=== PATIENT | female | born 1980 | race Two or more races ===

== ENCOUNTER → 2016-06-29 | Outpatient (REF) | payer OTHER, MEDICAID | LOC: M SFHCLERA 11:18 | PROVIDERS: ATTEND Family Medicine | DX: Z12.4 Encounter for screening for malignant neoplasm of cervix (principal) ==

== ENCOUNTER 2016-07-03 17:08 | Emergency (ER) | payer OTHER, MEDICAID ==
--- NOTE | 2016-07-03 18:04 | REP ---
Clinical: Trauma . Technique: Internal rotation, external rotation, and Y view left shoulder. Findings: No acute fracture or dislocation. The acromioclavicular and glenohumeral joints are intact. No periarticular calcifications or degenerative changes are appreciated. Sub acromial space is normal. Surrounding soft tissues are unremarkable. Impression: No acute fracture or dislocation. Signed by Anuel Olson MD 07/03/2016 05:55 P
--- NOTE | 2016-07-03 18:06 | REP ---
Clinical: Trauma. Technique: AP view of the pelvis with neutral and frog lateral views of the left hip. Findings: No acute fracture or dislocation. Small calcified density adjacent to the superior acetabular rim and mild increased sclerosis to the acetabular roof suggests mild degenerative change. Impression: Mild degenerative changes involving the left hip. No acute fracture or dislocation. Signed by Anuel Olson MD 07/03/2016 05:56 P
--- NOTE | 2016-07-03 18:15 | EDDOCDS ---
Nurse's Notes [facility] Name: Santa Rausch Age: 36 yrs Sex: Female : 1980 Arrival Date: 07/03/2016 Time: 17:08 Bed 13 Private MD: [place]el [facility] [place]: Contusion of left hip;Contusion of left shoulder Presentation: 07/03 17:13 Presenting complaint: Patient states: fell while running x 2 days ago with pain to left kc3 hip and arm. Adult Sepsis Screening: The patient does not have new or worsening altered mentation. Patient's respiratory rate is less than 22. Systolic blood pressure is greater than 100. Patient has a qSOFA score of 0- Negative Sepsis Screen. Suicide/Homicide risk assessment- the patient denies having any suicidal and/or homicidal ideations and does not present with any other emotional, behavioral or mental health complaints. Status: Patient is not a director of environmental services or dependent. Transition of care: patient was not received from another setting of care. 17:13 Acuity: MATEO Level 4 kc3 17:13 Method Of Arrival: Walkin/Carried/Asstd kc3 Triage Assessment: 17:15 General: Appears in no apparent distress, comfortable, Behavior is appropriate for age, kc3 cooperative. Pain: Location: left hip and left arm Pain currently is 7 out of 10 on a pain scale. HIV screening NA for this visit Offered previously. Musculoskeletal: Circulation, motion, and sensation intact Reports pain in left arm and hip. 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 none - PMHx: Kidney stones; - PSHx: none; - Social history: Smoking status: Patient states was never smoker of tobacco. No barriers to communication noted, The patient speaks fluent French, Speaks appropriately for age. - Family history: Not pertinent. - : The pt / caregiver states he / she is not on anticoagulants. Home medication list is obtained from the patient. - Exposure Risk Screening:: None identified. Screenin:12 Screening information is obtained from the patient. Fall risk: No risks identified. hs1 Assistance ADL's: requires no assistance with activities of daily living. Abuse/DV Screen: The patient / caregiver reports he/she is: not in a situation that causes fear, pain or injury. Nutritional screening: No deficits noted. Advance Directives: There is no active DNR order. home support is adequate. Assessment: 18:12 General: Appears in no apparent distress, comfortable, Behavior is appropriate for age, hs1 cooperative. Pain: Location: left hip, anterior aspect of left shoulder and posterior aspect of left shoulder Pain currently is 7 out of 10 on a pain scale. Quality of pain is described as aching, dull. Neurological: No deficits noted. Respiratory: Airway is patent Respiratory effort is even, unlabored, Respiratory pattern is regular, symmetrical. Musculoskeletal: Range of motion intact in all extremities. Vital Signs: 17:09 BP 149 / 76; Pulse 72; Resp 18; Temp 97.7(O); Pulse Ox 100% on R/A; Weight 66.68 kg lr2 (R); Height 5 ft. 2 in. (157.48 cm) (R); Pain 7/10; 18:13 BP 124 / 76; Pulse 79; Resp 18; Temp 97.8; Pulse Ox 98% ; Pain 7/10; hs1 17:09 Body Mass Index 26.89 (66.68 kg, 157.48 cm) lr2 Vitals: 17:09 Log In Time: July 03, 2016 at 17:08. lr2 ED Course: 17:09 Patient visited by Alix Sharma. lr2 17:09 Patient moved to Waiting lr2 17:10 Shanel [facility] [place] Private Physician. lr2 17:10 Patient moved to Pre RCE lr2 17:14 Triage Initiated kc3 17:23 Iam Seymour FNP is [facility]. ke 17:23 Patient visited by Iam Seymour FNP. ke 17:23 Patient visited by Iam Seymour FNP. ke 17:23 Patient moved to 13 mlb1 18:03 Patient visited by Iam Seymour FNP. ke 18:03 DIANA Ugarte is Referral Physician. ke 18:12 No IV's were initiated during this patient's visit. No procedures done that require hs1 assistance. 18:13 The patient / caregiver is instructed regarding the plan of care and ED course. hs1 Order Results: There are currently no results for this order. Outcome: 18:04 Discharge ordered by Provider. ke 18:13 Discharge Assessment: Patient awake, alert and oriented x 3. No cognitive and/or hs1 functional deficits noted. Patient verbalized understanding of disposition instructions. patient administered narcotics - no. The following High Risk Discharge criteria are identified: None. Discharged to home ambulatory. Condition: stable. Discharge instructions given to patient, Instructed on discharge instructions, follow up and referral plans. medication usage, Demonstrated understanding of instructions, medications, Pt was receptive of discharge instructions/ teaching. No special radiology studies were completed. Property sent home with patient. 18:14 Patient left the ED. hs1 Signatures: Iam Seymour, PRECISION DYER Bg Hernández RN RN mlb1 Sabiha Morton RN RN hs1 Ernestina Frances RN RN kc3 Alix Sharma2 MTDD
--- NOTE | 2016-07-03 18:15 | EDDOCDS ---
Physician Documentation [facility] Name: Santa Rausch Age: 36 yrs Sex: Female : 1980 Arrival Date: 07/03/2016 Time: 17:08 Bed 13 Private MD: ADRIANO Ugarte Disposition: 07/03/16 18:04 Discharged to Home/Self Care. Impression: Contusion of left hip, Contusion of left shoulder. - Condition is Stable. - Discharge Instructions: Shoulder Pain, Hip Pain. - Prescriptions for Ibuprofen 600 mg Oral Tablet - take 1 tablet by ORAL route every 6 hours As needed take with food; 30 tablet. Cyclobenzaprine 10 mg Oral Tablet - take 1 tablet by ORAL route 3 times per day As needed; 15 tablet. - Medication Reconciliation, Local Pharmacy Hours form. - Follow up: ADRIANO Ugarte; When: 4 - 5 days; Reason: Recheck today's complaints, Continuance of care. - Problem is an ongoing problem. - Symptoms are unchanged. Historical: - Allergies: no known allergies; - Home Meds: 1. none - PMHx: Kidney stones; - PSHx: none; - Social history: Smoking status: Patient states was never smoker of tobacco. No barriers to communication noted, The patient speaks fluent Chilean, Speaks appropriately for age. - Family history: Not pertinent. - : The pt / caregiver states he / she is not on anticoagulants. Home medication list is obtained from the patient. - Exposure Risk Screening:: None identified. 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 2 in. (157.48 cm) (R); Pain 7/10; 18:13 BP 124 / 76; Pulse 79; Resp 18; Temp 97.8; Pulse Ox 98% ; Pain 7/10; hs1 17:09 Body Mass Index 26.89 (66.68 kg, 157.48 cm) lr2 MDM: 17:29 Shoulder, Complete Ordered. EDMS 17:29 Hip,AP,LAT to include Pelvis Ordered. EDMS 18:07 Financial registration complete. [email or web address] Signatures: Dispatcher [employer] Iam Ramirez, TELEVISION INSTALLER HELPER TELEVISION INSTALLER HELPER Sabiha Ramirez RN RN hs1 Ernestina Frances RN RN kc3 Francie Coker, Reg Reg ks16 MTDD
--- NOTE | 2016-07-05 19:14 | EDDOCDS ---
Physician Documentation [facility] Name: Santa Rausch Age: 36 yrs Sex: Female : 1980 Arrival Date: 07/03/2016 Time: 17:08 Bed 13 Private MD: ADRIANO Ugarte Disposition: 07/03/16 18:04 Discharged to Home/Self Care. Impression: Contusion of left hip, Contusion of left shoulder. - Condition is Stable. - Discharge Instructions: Shoulder Pain, Hip Pain. - Prescriptions for Ibuprofen 600 mg Oral Tablet - take 1 tablet by ORAL route every 6 hours As needed take with food; 30 tablet. Cyclobenzaprine 10 mg Oral Tablet - take 1 tablet by ORAL route 3 times per day As needed; 15 tablet. - Medication Reconciliation, Local Pharmacy Hours form. - Follow up: ADRIANO Ugarte; When: 4 - 5 days; Reason: Recheck today's complaints, Continuance of care. - Problem is an ongoing problem. - Symptoms are unchanged. Historical: - Allergies: no known allergies; - Home Meds: 1. none - PMHx: Kidney stones; - PSHx: none; - Social history: Smoking status: Patient states was never smoker of tobacco. No barriers to communication noted, The patient speaks fluent Surinamese, Speaks appropriately for age. - Family history: Not pertinent. - : The pt / caregiver states he / she is not on anticoagulants. Home medication list is obtained from the patient. - Exposure Risk Screening:: None identified. 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 2 in. (157.48 cm) (R); Pain 7/10; 18:13 BP 124 / 76; Pulse 79; Resp 18; Temp 97.8; Pulse Ox 98% ; Pain 7/10; hs1 17:09 Body Mass Index 26.89 (66.68 kg, 157.48 cm) lr2 MDM: 17:29 Shoulder, Complete Ordered. EDMS 17:29 Hip,AP,LAT to include Pelvis Ordered. EDMS 18:07 Financial registration complete. ks16 19:12 [facility] Payment Agreement was scanned into [employer] and attached to record. 07/04 09:19 T-Sheet-- Draft Copy was scanned into [employer] and attached to record. [facility] Signatures: Dispatcher [employer] EDIam Green, RANGE MANAGEMENT SPECIALIST RANGE MANAGEMENT SPECIALISTSabiha Live RN RN hs1 Ernestina Frances RN RN kc3 Francie Coker, Reg Reg ks16 Dayana Romero [facility] The chart was reviewed and I authenticate all verbal orders and agree with the evaluation and treatment provided.Attachments: 07/03 19:12 [facility] Payment Agreement 07/04 09:19 T-Sheet-- Draft Copy [facility] Chart Complete MTDD
--- NOTE | 2016-07-05 19:14 | EDDOCDS ---
Physician Documentation [facility] Name: Santa Rausch Age: 36 yrs Sex: Female : 1980 Arrival Date: 07/03/2016 Time: 17:08 Bed 13 Private MD: ADRIANO Ugarte Disposition: 07/03/16 18:04 Discharged to Home/Self Care. Impression: Contusion of left hip, Contusion of left shoulder. - Condition is Stable. - Discharge Instructions: Shoulder Pain, Hip Pain. - Prescriptions for Ibuprofen 600 mg Oral Tablet - take 1 tablet by ORAL route every 6 hours As needed take with food; 30 tablet. Cyclobenzaprine 10 mg Oral Tablet - take 1 tablet by ORAL route 3 times per day As needed; 15 tablet. - Medication Reconciliation, Local Pharmacy Hours form. - Follow up: ADRIANO Ugarte; When: 4 - 5 days; Reason: Recheck today's complaints, Continuance of care. - Problem is an ongoing problem. - Symptoms are unchanged. Historical: - Allergies: no known allergies; - Home Meds: 1. none - PMHx: Kidney stones; - PSHx: none; - Social history: Smoking status: Patient states was never smoker of tobacco. No barriers to communication noted, The patient speaks fluent Slovenian, Speaks appropriately for age. - Family history: Not pertinent. - : The pt / caregiver states he / she is not on anticoagulants. Home medication list is obtained from the patient. - Exposure Risk Screening:: None identified. 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 2 in. (157.48 cm) (R); Pain 7/10; 18:13 BP 124 / 76; Pulse 79; Resp 18; Temp 97.8; Pulse Ox 98% ; Pain 7/10; hs1 17:09 Body Mass Index 26.89 (66.68 kg, 157.48 cm) lr2 MDM: 17:29 Shoulder, Complete Ordered. EDMS 17:29 Hip,AP,LAT to include Pelvis Ordered. EDMS 18:07 Financial registration complete. ks16 19:12 [facility] Payment Agreement was scanned into [employer] and attached to record. 07/04 09:19 T-Sheet-- Draft Copy was scanned into [employer] and attached to record. [facility] Signatures: Dispatcher [employer] EDIam Green, SIZE MIXER SIZE MIXERSabiha Live RN RN hs1 Ernestina Frances RN RN kc3 Francie Coker, Reg Reg ks16 Dayana Romero [facility] The chart was reviewed and I authenticate all verbal orders and agree with the evaluation and treatment provided.Attachments: 07/03 19:12 [facility] [place] 07/04 09:19 T-Sheet-- Draft Copy [facility] Chart Complete MTDD
--- NOTE | 2016-07-05 19:14 | EDDOCDS ---
Nurse's Notes [facility] Name: Santa Rausch Age: 36 yrs Sex: Female : 1980 Arrival Date: 07/03/2016 Time: 17:08 Bed 13 Private MD: Shanel [facility] Diagnosis: Contusion of left hip;Contusion of left shoulder Presentation: 07/03 17:13 Presenting complaint: Patient states: fell while running x 2 days ago with pain to left kc3 hip and arm. Adult Sepsis Screening: The patient does not have new or worsening altered mentation. Patient's respiratory rate is less than 22. Systolic blood pressure is greater than 100. Patient has a qSOFA score of 0- Negative Sepsis Screen. Suicide/Homicide risk assessment- the patient denies having any suicidal and/or homicidal ideations and does not present with any other emotional, behavioral or mental health complaints. Status: Patient is not a conference services coordinator or dependent. Transition of care: patient was not received from another setting of care. 17:13 Acuity: MATEO Level 4 kc3 17:13 Method Of Arrival: Walkin/Carried/Asstd kc3 Triage Assessment: 17:15 General: Appears in no apparent distress, comfortable, Behavior is appropriate for age, kc3 cooperative. Pain: Location: left hip and left arm Pain currently is 7 out of 10 on a pain scale. HIV screening NA for this visit Offered previously. Musculoskeletal: Circulation, motion, and sensation intact Reports pain in left arm and hip. ISO COORDINATOR: 17:15 LMP 06/25/2016 kc3 Historical: - Allergies: no known allergies; - Home Meds: 1. none - PMHx: Kidney stones; - PSHx: none; - Social history: Smoking status: Patient states was never smoker of tobacco. No barriers to communication noted, The patient speaks fluent Azeri, Speaks appropriately for age. - Family history: Not pertinent. - : The pt / caregiver states he / she is not on anticoagulants. Home medication list is obtained from the patient. - Exposure Risk Screening:: None identified. Screenin:12 Screening information is obtained from the patient. Fall risk: No risks identified. hs1 Assistance ADL's: requires no assistance with activities of daily living. Abuse/DV Screen: The patient / caregiver reports he/she is: not in a situation that causes fear, pain or injury. Nutritional screening: No deficits noted. Advance Directives: There is no active DNR order. home support is adequate. Assessment: 18:12 General: Appears in no apparent distress, comfortable, Behavior is appropriate for age, hs1 cooperative. Pain: Location: left hip, anterior aspect of left shoulder and posterior aspect of left shoulder Pain currently is 7 out of 10 on a pain scale. Quality of pain is described as aching, dull. Neurological: No deficits noted. Respiratory: Airway is patent Respiratory effort is even, unlabored, Respiratory pattern is regular, symmetrical. Musculoskeletal: Range of motion intact in all extremities. Vital Signs: 17:09 BP 149 / 76; Pulse 72; Resp 18; Temp 97.7(O); Pulse Ox 100% on R/A; Weight 66.68 kg lr2 (R); Height 5 ft. 2 in. (157.48 cm) (R); Pain 7/10; 18:13 BP 124 / 76; Pulse 79; Resp 18; Temp 97.8; Pulse Ox 98% ; Pain 7/10; hs1 17:09 Body Mass Index 26.89 (66.68 kg, 157.48 cm) lr2 Vitals: 17:09 Log In Time: July 03, 2016 at 17:08. lr2 ED Course: 17:09 Patient visited by Alix Sharma. lr2 17:09 Patient moved to Waiting lr2 17:[address] [facility] is Private Physician. lr2 17:10 Patient moved to Pre RCE lr2 17:14 Triage Initiated kc3 17:23 Iam Seymour F[facility]. ke 17:23 Patient visited by Iam Seymour FNP. ke 17:23 Patient visited by Iam Seymour FNP. ke 17:23 Patient moved to 13 mlb1 18:03 Patient visited by Iam Seymour FNP. ke 18:03 DIANA Ugarte is Referral Physician. ke 18:12 No IV's were initiated during this patient's visit. No procedures done that require hs1 assistance. 18:13 The patient / caregiver is instructed regarding the plan of care and ED course. hs1 18:41 Shoulder, Complete Returned. EDMS 18:41 Hip,AP,LAT to include Pelvis Returned. EDMS 19:12 [facility] Payment Agreement was scanned into [employer] and attached to record. ks16 07/04 09:19 T-Sheet-- Draft Copy was scanned into [employer] and attached to record. [facility] Order Results: Radiology Order: Shoulder, Complete Test: Shoulder, Complete REASON FOR EXAMINATION: Trauma; Clinical: Trauma .; ; Technique: Internal rotation, external rotation, and Y view left shoulder.; ; Findings:; No acute fracture or dislocation. The acromioclavicular and glenohumeral joints; are intact. No periarticular calcifications or degenerative changes are; appreciated. Sub acromial space is normal. Surrounding soft tissues are; unremarkable.; ; Impression:; No acute fracture or dislocation.; ; ; Signed by; Anuel Olson MD 07/03/2016 05:55 P; Radiology Order: Hip,AP,LAT to include Pelvis Test: Hip,AP,LAT to include Pelvis REASON FOR EXAMINATION: Trauma; Clinical: Trauma.; ; Technique: AP view of the pelvis with neutral and frog lateral views of the left; hip.; ; Findings:; No acute fracture or dislocation. Small calcified density adjacent to the; superior acetabular rim and mild increased sclerosis to the acetabular roof; suggests mild degenerative change.; ; Impression:; Mild degenerative changes involving the left hip.; No acute fracture or dislocation.; ; ; Signed by; Anuel Olson MD 07/03/2016 05:56 P; Outcome: 07/03 18:04 Discharge ordered by Provider. narda 18:13 Discharge Assessment: Patient awake, alert and oriented x 3. No cognitive and/or hs1 functional deficits noted. Patient verbalized understanding of disposition instructions. patient administered narcotics - no. The following High Risk Discharge criteria are identified: None. Discharged to home ambulatory. Condition: stable. Discharge instructions given to patient, Instructed on discharge instructions, follow up and referral plans. medication usage, Demonstrated understanding of instructions, medications, Pt was receptive of discharge instructions/ teaching. No special radiology studies were completed. Property sent home with patient. 18:14 Patient left the ED. hs1 Signatures: Dispatcher [employer] EDMS Iam Seymour, ENVIRONMENTAL PROJECTS ADVISOR ENVIRONMENTAL PROJECTS ADVISORBg Bustillos RN RN mlb1 Sabiha Morton RN RN hs1 Ernestina Frances RN RN [email or web address] Francie Coker, Reg Reg ks16 Dayana Romero, Alix lr2 Chart Complete MTDD
== END 2016-07-03 18:14 | disposition home or self-care (01) ==
LOC: M ED 17:08
DX: S70.02XA Contusion of left hip, initial encounter (principal); S40.012A Contusion of left shoulder, initial encounter; W18.30XA Fall on same level, unspecified, initial encounter; Y92.89 Other specified places as the place of occurrence of the external cause; Y93.02 Activity, running; Y99.8 Other external cause status; Z87.442 Personal history of urinary calculi

== ENCOUNTER → 2016-07-15 | Outpatient (CLI) | payer OTHER, MEDICAID ==
--- NOTE | 2016-07-15 18:24 | REP ---
KUB ABDOMEN AND PELVIS: KUB film of the abdomen and pelvis is performed. Bowel gas pattern is normal. Multiple phleboliths are seen in the pelvis. Evaluation for renal calculi is limited due to overlying fecal material. No definite renal stones are seen radiographically. IMPRESSION: No definite renal calculi seen radiographically. Signed by Zia Sifuentes MD 07/16/2016 04:55 P
== END ==
LOC: M SMT 15:12
PROVIDERS: ATTEND Nurse Practitioner Women's Health
DX: N20.0 Calculus of kidney (principal)

== ENCOUNTER 2016-09-04 18:31 | Emergency (ER) | payer OTHER, MEDICAID ==
[~2016-09-04] VITALS: Ht 157.5 cm; Wt 68.0 kg
[2016-09-04 18:31] VITALS: BP 137/72
[2016-09-04] MEDS ORDERED: AZIT250T3 PO (19:35)
[2016-09-04] MEDS ORDERED: PRED20TA PO (19:35)
[2016-09-04] MEDS ORDERED: ALBUTEROL 90 MCG/ACT 8GM HFA INHALER INH ONE (19:45)
[2016-09-04] MEDS ORDERED: predniSONE 20 MG TAB PO ONE (19:45)
[2016-09-04] MEDS ORDERED: AZITHROMYCIN 250 MG TAB PO ONE (19:45)
== END 2016-09-04 19:48 | disposition home or self-care (01) ==
LOC: M ED 19:45
DX: J20.9 Acute bronchitis, unspecified (principal); Z87.442 Personal history of urinary calculi

== ENCOUNTER 2016-10-26 19:03 | Emergency (ER) | payer OTHER, MEDICAID ==
[~2016-10-26] VITALS: Ht 157.5 cm; Wt 76.0 kg
[~2016-10-26 19:03] MED LIST: AZIT-12 PO; PRED20TA PO
[2016-10-26 19:16] VITALS: BP 131/85
[2016-10-26] MEDS ORDERED: FLUO10TA2 PO (19:20)
[2016-10-26] MEDS ORDERED: CYCL10TA PO (19:50)
[2016-10-26] MEDS ORDERED: NAPR500T PO (19:50)
== END 2016-10-26 19:59 | disposition home or self-care (01) ==
LOC: M ED 19:36
DX: M54.12 Radiculopathy, cervical region (principal); M50.020 Cervical disc disorder with myelopathy, mid-cervical region, unspecified level; G62.9 Polyneuropathy, unspecified; F32.9 Major depressive disorder, single episode, unspecified; F17.200 Nicotine dependence, unspecified, uncomplicated; Z79.899 Other long term (current) drug therapy; Z87.442 Personal history of urinary calculi

== ENCOUNTER → 2016-11-08 | Outpatient (CLI) | payer OTHER, MEDICAID ==
[~2016-11-08] MED LIST changes: +CYCL10TA PO; +FLUO10TA2 PO; +NAPR500T PO
--- NOTE | 2016-11-08 17:32 | REP ---
Clinical: Tendonitis . Technique: Internal rotation, external rotation, and Y view left shoulder. Comparison: 07/03/2016 . Findings: No acute fracture or dislocation. The acromioclavicular and glenohumeral joints are intact. No periarticular calcifications or degenerative changes are appreciated. Sub acromial space is normal. Surrounding soft tissues are unremarkable. Impression: Normal left shoulder radiographs. Signed by Anuel Olson MD 11/08/2016 05:24 P
--- NOTE | 2016-11-08 17:33 | REP ---
Clinical: Pain and tenderness . Technique: AP, lateral, bilateral oblique views of the left elbow. Findings: No acute fracture or dislocation is appreciated. Joint spaces and surrounding soft tissues appear normal. Lateral view demonstrates normal positioning to the anterior and posterior fat pads without evidence for effusion/hemarthrosis. No subcutaneous emphysema or foreign body identified. Impression: Normal left elbow radiographs. Signed by Anuel Olson MD 11/08/2016 05:25 P
== END ==
LOC: M LRY 15:51
PROVIDERS: ATTEND Family Medicine
DX: M25.522 Pain in left elbow (principal); M75.92 Shoulder lesion, unspecified, left shoulder

== ENCOUNTER 2017-05-24 16:21 | Emergency (ER) | payer OTHER, MEDICAID ==
[2017-05-24] MEDS: ACETAMINOPHEN 325 MG TAB PO (19:59)
[2017-05-24] MEDS: BENZONATATE 100 MG CAP PO (20:00)
== END 2017-05-24 20:54 | disposition home or self-care (01) ==
LOC: M ED 16:21
DX: S60.222A Contusion of left hand, initial encounter (principal); X50.0XXA Overexertion from strenuous movement or load, initial encounter; Y92.89 Other specified places as the place of occurrence of the external cause; Y93.89 Activity, other specified; Y99.0 Civilian activity done for income or pay; J20.8 Acute bronchitis due to other specified organisms; Z87.442 Personal history of urinary calculi
CPT/HCPCS: 73130

== ENCOUNTER 2017-08-26 12:35 | Emergency (ER) | payer OTHER, MEDICAID ==
[2017-08-26] MEDS: IBUPROFEN 800 MG TAB PO (13:23)
[2017-08-26 13:45] LABS: INFLUENZA A AMPLIFICATION NEGATIVE (NEGATIVE); INFLUENZA B AMPLIFICATION NEGATIVE (NEGATIVE)
[2017-08-26] MEDS: IPRATROPIUM 0.5MG/ALBUTEROL 2.5MG INH SOL UD 3ML (DUONEB)(J7620) NEB (13:54)
== END 2017-08-26 14:24 | disposition home or self-care (01) ==
LOC: M ED 12:35
DX: J06.9 Acute upper respiratory infection, unspecified (principal); J45.901 Unspecified asthma with (acute) exacerbation
CPT/HCPCS: 71046

== ENCOUNTER 2017-09-20 20:22 | Emergency (ER) | payer OTHER, MEDICAID ==
[2017-09-20] MEDS: LORazepam 1 MG TAB PO (21:15)
== END 2017-09-20 21:45 | disposition home or self-care (01) ==
LOC: M ED 20:22
DX: F41.1 Generalized anxiety disorder (principal); F33.9 Major depressive disorder, recurrent, unspecified; F17.210 Nicotine dependence, cigarettes, uncomplicated
CPT/HCPCS: 93005

== ENCOUNTER → 2018-03-29 | Outpatient (CLI) | payer OTHER, MEDICAID | LOC: M RAD 06:44 | DX: M79.605 Pain in left leg (principal); G44.52 New daily persistent headache (NDPH) | CPT/HCPCS: 70551 ==

== ENCOUNTER → 2018-04-06 | Outpatient (REF) | payer OTHER | LOC: M LAB REF 13:35 | DX: J02.0 Streptococcal pharyngitis (principal) | CPT/HCPCS: 87070 ==

== ENCOUNTER 2018-05-06 15:35 | Emergency (ER) | payer OTHER, SELFPAY ==
[~2018-05-06] VITALS: Ht 157.5 cm; Wt 67.2 kg
[~2018-05-06 15:35] MED LIST changes: +ALL10TAB28 PO; +FLON1SPR; +NAPR-50 PO; -NAPR500T PO; +PROAAER10 INH; +TESS100C PO
[2018-05-06 15:36] VITALS: BP 128/73
[2018-05-06] MEDS ORDERED: LORA1TAB12 PO (15:49)
[2018-05-06] MEDS ORDERED: CITA20TA4 PO (15:49)
[2018-05-06] MEDS ORDERED: IBUP200T45 PO (15:50)
[2018-05-06] MEDS ORDERED: ACET-683 PO (15:50)
[2018-05-06] MEDS ORDERED: MUCI600T37 PO (16:37)
[2018-05-06] MEDS ORDERED: AUGM875T28 PO (16:37)
[2018-05-06] MEDS ORDERED: PROAAER10 INH (16:37)
== END 2018-05-06 16:43 | disposition home or self-care (01) ==
LOC: M ED 15:35
DX: J01.90 Acute sinusitis, unspecified (principal); R05 Cough; F32.9 Major depressive disorder, single episode, unspecified; Z87.442 Personal history of urinary calculi; Z72.0 Tobacco use; Z79.899 Other long term (current) drug therapy

== ENCOUNTER 2019-04-10 13:33 | Emergency (ER) | payer SELFPAY, OTHER, MEDICAID ==
[~2019-04-10] VITALS: Ht 157.5 cm; Wt 70.4 kg
[~2019-04-10 13:33] MED LIST changes: +ACET-683 PO; -ALL10TAB28 PO; +ALL10TAB29 PO; +AUGM875T28 PO; +CITA20TA6 PO; +IBUP200T45 PO; +LORA1TAB12 PO; +MUCI600T37 PO; -NAPR-50 PO; +NAPR-837 PO
[2019-04-10 13:34] VITALS: BP 132/83
[2019-04-10] MEDS ORDERED: ACET1LIQ PO (13:40)
== END 2019-04-10 14:29 | disposition left against medical advice (07) ==
LOC: M ED 13:33
DX: Z53.21 Procedure and treatment not carried out due to patient leaving prior to being seen by health care provider (principal)

== ENCOUNTER 2019-05-06 01:17 | Emergency (ER) | payer MEDICAID, OTHER, SELFPAY ==
[~2019-05-06] VITALS: Ht 157.5 cm; Wt 64.1 kg
[2019-05-06 01:17] VITALS: BP 132/75
[~2019-05-06 01:17] MED LIST changes: +ACET1LIQ PO
[2019-05-06] MEDS ORDERED: diphenhydrAMINE INJ 50MG/ML VIAL (J1200) IV ONE (02:45)
[2019-05-06] MEDS ORDERED: METOCLOPRAMIDE INJ 10MG/2ML VIAL (J2765) IV ONE (02:45)
[2019-05-06] MEDS ORDERED: KETOROLAC 30 MG/ML VIAL (J1885) IV ONE (02:45)
[2019-05-06] MEDS ORDERED: NS 1,000 ML IV ONE (02:45)
--- NOTE | 2019-05-06 03:13 | REPVR ---
PROCEDURE INFORMATION: Exam: CT Head Without Contrast Exam date and time: 05/06/2019 2:42 AM Age: 39 years old Clinical indication: Pain; Headache; Additional info: New onset headache TECHNIQUE: Imaging protocol: Computed tomography of the head without contrast. Radiation optimization: All CT scans at this facility use at least one of these dose optimization techniques: automated exposure control; mA and/or kV adjustment per patient size (includes targeted exams where dose is matched to clinical indication); or iterative reconstruction. COMPARISON: MRI-Brain without Contrast 03/29/2018 7:43 AM FINDINGS: Brain: Normal. No hemorrhage. Unremarkable white matter. No mass effect. Ventricles: Normal. No ventriculomegaly. Bones/joints: Unremarkable. No acute fracture. Sinuses: Visualized sinuses are unremarkable. No fluid levels. Mastoid air cells: Visualized mastoid air cells are well aerated. Soft tissues: Unremarkable. IMPRESSION: Negative noncontrast head CT. Electronically signed by: Adin Lyons On 05/06/2019 03:13:10 AM
[2019-05-06 03:14] LABS: BASO # 0.1 10^3/uL (0.0-0.2); BASO % 0.8 % (0.0-1.0); EOS # 0.3 10^3/uL (0.0-0.5); EOS % 3.8 % (0.0-3.0); HEMATOCRIT 46.3 % (36.0-47.0); HEMOGLOBIN 15.1 g/dl (12.0-15.5); LYMPH # 2.9 10^3/uL (1.5-5.0); LYMPH % 38.8 % (24.0-44.0); MEAN CORPUSCULAR HEMOGLOBIN 30.7 pg (27.0-33.0); MEAN CORPUSCULAR HGB CONC 32.6 g/dl (32.0-36.5); MEAN CORPUSCULAR VOLUME 94.1 fl (80.0-96.0); MONO # 0.5 10^3/uL (0.0-0.8); MONO % 6.4 % (0.0-5.0); NEUTROPHILS # 3.7 10^3/uL (1.5-8.5); NEUTROPHILS % 50.1 % (36.0-66.0); PLATELET COUNT, AUTOMATED 279 10^3/uL (150-450); RED BLOOD COUNT 4.92 10^6/uL (4.00-5.40); WHITE BLOOD COUNT 7.3 10^3/uL (4.0-10.0)
[2019-05-06 03:40] LABS: BLOOD UREA NITROGEN 7 MG/DL (7-18); CALCIUM LEVEL 8.4 MG/DL (8.5-10.1); CARBON DIOXIDE LEVEL 29 MEQ/L (21-32); CHLORIDE LEVEL 110 MEQ/L (98-107); CREATININE FOR GFR 0.68 MG/DL (0.55-1.30); GLOMERULAR FILTRATION RATE > 60.0 (>60); GLUCOSE, FASTING 92 MG/DL (70-100); POTASSIUM SERUM 4.1 MEQ/L (3.5-5.1); SODIUM LEVEL 142 MEQ/L (136-145)
[2019-05-06] MEDS ORDERED: MECL-68 PO (04:11)
[2019-05-06] MEDS ORDERED: FLON1SPR NARES (04:11)
[2019-05-06] MEDS ORDERED: MECLIZINE 25 MG TABLET PO ONE (04:15)
== END 2019-05-06 04:32 | disposition home or self-care (01) ==
LOC: M ED 01:17
DX: G43.909 Migraine, unspecified, not intractable, without status migrainosus (principal); R42 Dizziness and giddiness; F33.9 Major depressive disorder, recurrent, unspecified; F41.9 Anxiety disorder, unspecified; F17.210 Nicotine dependence, cigarettes, uncomplicated; Z79.899 Other long term (current) drug therapy
CPT/HCPCS: 70450; 80048; 85025; 96361; 96374; 96375; 99283; J1200; J1885; J2765

== ENCOUNTER → 2020-11-20 | Outpatient (REF) ==
[~2020-11-20] MED LIST changes: +ACET160L16 PO; -ACET1LIQ PO; -ALL10TAB29 PO; +CETI-24 PO; +CYCL-707 PO; -CYCL10TA PO; +FLON1SPR NARES; -LORA1TAB12 PO; +LORA1TAB4 PO; +MECL1TAB31 PO
== END ==
LOC: M EMP 14:29
PROVIDERS: ATTEND Nurse Practitioner Adult Health
DX: Z02.89 Encounter for other administrative examinations (principal)

== ENCOUNTER → 2020-12-18 | Outpatient (REF) | payer OTHER ==
[2020-12-18 16:13] LABS: APPEARANCE, URINE CLOUDY (CLEAR); BACTERIA, URINE AUTO 3+ (NEGATIVE); BILIRUBIN, URINE AUTO NEGATIVE (NEGATIVE); BLOOD, URINE BLOOD 1+ (NEGATIVE); COLOR, URINE YELLOW (YELLOW); GLUCOSE, URINE (UA) AUTO NEGATIVE (NEGATIVE); KETONE, URINE AUTO NEGATIVE (NEGATIVE); LEUKOCYTE ESTERASE, URINE AUTO 3+ (NEGATIVE); MUCUS, URINE SMALL (NEGATIVE); NITRITE, URINE AUTO POSITIVE (NEGATIVE); PROTEIN, URINE AUTO 1+ mg/dL (NEGATIVE); RBC, URINE AUTO 21 /HPF (0-3); SPECIFIC GRAVITY URINE AUTO 1.012 (1.002-1.035); SQUAMOUS EPITHELIAL CELL UR AU 3 /HPF (0-6); UROBILINOGEN, URINE AUTO 0.2 mg/dL (0.0-2.0); WBC, URINE AUTO TNTC /HPF (0-3)
== END ==
LOC: M SFHCLERA 15:48
PROVIDERS: ATTEND Student in an Organized Health Care Education/Training Program
DX: N20.0 Calculus of kidney (principal)

== ENCOUNTER → 2020-12-18 | Outpatient (CLI) | payer OTHER ==
[2020-12-18 11:19] LABS: BASO # 0.1 10^3/uL (0.0-0.2); BASO % 1.1 % (0.0-1.0); EOS # 0.3 10^3/uL (0.0-0.5); EOS % 3.8 % (0.0-3.0); HEMATOCRIT 40.8 % (36.0-47.0); HEMOGLOBIN 13.3 g/dl (12.0-15.5); LYMPH # 2.4 10^3/uL (1.5-5.0); LYMPH % 37.3 % (24.0-44.0); MEAN CORPUSCULAR HEMOGLOBIN 30.4 pg (27.0-33.0); MEAN CORPUSCULAR HGB CONC 32.6 g/dl (32.0-36.5); MEAN CORPUSCULAR VOLUME 93.4 fl (80.0-96.0); MONO # 0.7 10^3/uL (0.0-0.8); MONO % 11.2 % (2.0-8.0); NEUTROPHILS % 46.1 % (36.0-66.0); PLATELET COUNT, AUTOMATED 278 10^3/uL (150-450); RED BLOOD COUNT 4.37 10^6/uL (4.00-5.40); WHITE BLOOD COUNT 6.5 10^3/uL (4.0-10.0)
[2020-12-18 12:04] LABS: BLOOD UREA NITROGEN 7 MG/DL (7-18); CARBON DIOXIDE LEVEL 29 MEQ/L (21-32); CHLORIDE LEVEL 106 MEQ/L (98-107); CREATININE FOR GFR 0.68 MG/DL (0.55-1.30); GLOMERULAR FILTRATION RATE > 60.0 (>60); GLUCOSE, FASTING 89 MG/DL (70-100); POTASSIUM SERUM 4.1 MEQ/L (3.5-5.1); SODIUM LEVEL 139 MEQ/L (136-145)
== END ==
LOC: M LAB 09:20
PROVIDERS: ATTEND Student in an Organized Health Care Education/Training Program
DX: N20.0 Calculus of kidney (principal)

== ENCOUNTER → 2020-12-24 | Outpatient (REF) | payer OTHER | LOC: M SFHCLERA 17:14 | PROVIDERS: ATTEND Nurse Practitioner Family | DX: J02.9 Acute pharyngitis, unspecified (principal) ==

== ENCOUNTER 2021-09-13 04:06 | Emergency (ER) | payer OTHER ==
[~2021-09-13] VITALS: Ht 157.5 cm; Wt 72.6 kg
[~2021-09-13 04:06] MED LIST changes: -IBUP200T45 PO; +IBUP200T46 PO
[2021-09-13 04:59] LABS: BASO # 0.1 10^3/uL (0.0-0.2); BASO % 0.8 % (0.0-1.0); EOS # 0.3 10^3/uL (0.0-0.5); EOS % 4.1 % (0.0-3.0); HEMATOCRIT 37.7 % (36.0-47.0); HEMOGLOBIN 13.1 g/dl (12.0-15.5); LYMPH % 40.8 % (24.0-44.0); MEAN CORPUSCULAR HGB CONC 34.7 g/dl (32.0-36.5); MEAN CORPUSCULAR VOLUME 92.2 fl (80.0-96.0); MONO # 0.5 10^3/uL (0.0-0.8); MONO % 7.3 % (2.0-8.0); NEUTROPHILS # 3.4 10^3/uL (1.5-8.5); NEUTROPHILS % 46.6 % (36.0-66.0); PLATELET COUNT, AUTOMATED 284 10^3/uL (150-450); RED BLOOD COUNT 4.09 10^6/uL (4.00-5.40); WHITE BLOOD COUNT 7.4 10^3/uL (4.0-10.0)
[2021-09-13 05:10] LABS: PARTIAL THROMBOPLASTIN TIME 29.7 SECONDS (25.9-37.0)
[2021-09-13 05:12] LABS: D-DIMER QUANT 858.97 ng/ml (<500)
[2021-09-13 05:28] LABS: HCG, SERUM QUALITATIVE NEGATIVE (NEGATIVE)
[2021-09-13 05:38] LABS: CK-MB VALUE MASS < 1.0 NG/ML (<3.6); CPK CREATINE PHOSPHOKINASE 90 U/L (26-192); MB/CK RELATIVE INDEX 1.11 (< OR =4)
[2021-09-13 05:39] LABS: ALBUMIN 3.2 GM/DL (3.2-5.2); ALT/SGPT 22 U/L (12-78); BILIRUBIN,DIRECT < 0.1 MG/DL (0.0-0.2); BILIRUBIN,TOTAL 0.3 MG/DL (0.2-1.0); BLOOD UREA NITROGEN 10 MG/DL (7-18); CALCIUM LEVEL 8.6 MG/DL (8.5-10.1); CARBON DIOXIDE LEVEL 29 MEQ/L (21-32); CHLORIDE LEVEL 109 MEQ/L (98-107); CREATININE FOR GFR 0.62 MG/DL (0.55-1.30); GLOMERULAR FILTRATION RATE > 60.0 (>60); GLUCOSE, FASTING 117 MG/DL (70-100); LIPASE 195 U/L (73-393); POTASSIUM SERUM 3.8 MEQ/L (3.5-5.1); SODIUM LEVEL 142 MEQ/L (136-145); TOTAL PROTEIN 6.7 GM/DL (6.4-8.2)
[2021-09-13] MEDS ORDERED: ISOVUE-370 76% 100ML VIAL As Ordered ONE (05:44)
[2021-09-13] MEDS ORDERED: ONDANSETRON 4MG/2ML VIAL IV ONE (06:35)
[2021-09-13] MEDS ORDERED: KETOROLAC 30 MG/ML 1ML VIAL IV ONE (06:35)
[2021-09-13] MEDS ORDERED: MORPHINE 4 MG/ML 1ML VIAL/SYRINGE IV ONE (07:00)
[2021-09-13] MEDS ORDERED: CARA1TAB6 PO (08:12)
[2021-09-13] MEDS ORDERED: FAMO20TA PO (08:12)
[2021-09-13 08:30] VITALS: BP 119/68
== END 2021-09-13 08:38 | disposition home or self-care (01) ==
LOC: M ED 04:06
DX: R07.89 Other chest pain (principal); R10.9 Unspecified abdominal pain; R06.02 Shortness of breath; M54.9 Dorsalgia, unspecified; K76.0 Fatty (change of) liver, not elsewhere classified; F17.200 Nicotine dependence, unspecified, uncomplicated; Z87.442 Personal history of urinary calculi
CPT/HCPCS: 71275; 76705; 80048; 80076; 82550; 82553; 83690; 84484; 84703; 85025; 85379; 85730; 93005; 93041; 94760; 96374; 96375; 99285; J1885; J2270; J2405; Q9967

== ENCOUNTER 2022-03-09 15:37 | Emergency (ER) | payer OTHER ==
[~2022-03-09] VITALS: Ht 154.9 cm; Wt 73.8 kg
[2022-03-09 15:37] VITALS: BP 144/83
[~2022-03-09 15:37] MED LIST changes: +CARA1TAB6 PO; +FAMO20TA PO
[2022-03-09] MEDS ORDERED: IBUP-1022 PO (16:36)
== END 2022-03-09 16:58 | disposition home or self-care (01) ==
LOC: M ED 15:37
DX: S60.021A Contusion of right index finger without damage to nail, initial encounter (principal); W23.0XXA Caught, crushed, jammed, or pinched between moving objects, initial encounter; F17.200 Nicotine dependence, unspecified, uncomplicated; Z87.442 Personal history of urinary calculi; Y92.410 Unspecified street and highway as the place of occurrence of the external cause; Y93.9 Activity, unspecified; Z79.899 Other long term (current) drug therapy; Y99.9 Unspecified external cause status

== ENCOUNTER → 2022-05-17 | Outpatient (REF) | payer OTHER ==
[~2022-05-17] MED LIST changes: +IBUP-1022 PO
[2022-05-17 12:01] LABS: APPEARANCE, URINE MANUAL HAZY (CLEAR); BILIRUBIN, URINE MANUAL NEGATIVE (NEGATIVE); COLOR, URINE MANUAL LT YELLOW (YELLOW); GLUCOSE, URINE (UA) MANUAL NEGATIVE (NEGATIVE); KETONE, URINE MANUAL NEGATIVE (NEGATIVE); PH,URINE MAN 6.5 UNITS (5.0 - 7.0); PROTEIN, URINE MANUAL 1+ mg/dL (NEGATIVE); SPECIFIC GRAVITY,URINE MANUAL 1.015 (1.002-1.035); UROBILINOGEN, URINE MANUAL NORMAL (NORMAL)
[2022-05-17 12:02] LABS: BLOOD URINE MANUAL POSITIVE (NEGATIVE); LEUKOCYTE ESTERASE, URINE MAN POSITIVE (NEGATIVE); NITRITE, URINE MANUAL POSITIVE (NEGATIVE)
[2022-05-17 12:24] LABS: RBC, URINE 15-20 /hpf (0-3); WBC, URINE 40-50 /hpf (0-3)
[2022-05-17 12:26] LABS: AMORPHOUS SEDIMENT, URINE SMALL AMOUNT (NEGATIVE); BACTERIA, URINE LARGE AMOUNT; HYALINE CAST, URINE NONE SEEN /lpf (0-1); RENAL EPITHELIAL CELLS, URINE SMALL AMOUNT /hpf; SQUAMOUS EPITHELIAL CELL URINE MOD AMOUNT /hpf (SMALL AMT); TRANSITIONAL EPI CELLS, URINE SMALL AMOUNT /hpf
== END ==
LOC: M SFHCLERA 11:13
PROVIDERS: ATTEND Family Medicine
DX: R39.15 Urgency of urination (principal)

== ENCOUNTER → 2022-07-05 | Outpatient (REF) | payer OTHER ==
[~2022-07-05] MED LIST changes: -FLUO10TA2 PO; +FLUO1TAB PO
== END ==
LOC: M SFHCPLAZ 16:51
PROVIDERS: ATTEND Physician Assistant
DX: R68.89 Other general symptoms and signs (principal); J02.9 Acute pharyngitis, unspecified

== ENCOUNTER → 2022-11-05 | Outpatient (CLI) | payer OTHER ==
[~2022-11-05] MED LIST changes: +LORA1TAB23 PO; -LORA1TAB4 PO
[2022-11-05 11:58] LABS: BASO # 0.1 10^3/uL (0.0-0.2); BASO % 1.1 % (0.0-1.0); EOS # 0.2 10^3/uL (0.0-0.5); EOS % 2.5 % (0.0-3.0); HEMATOCRIT 40.1 % (36.0-47.0); HEMOGLOBIN 12.8 g/dl (12.0-15.5); LYMPH # 2.1 10^3/uL (1.5-5.0); LYMPH % 34.6 % (24.0-44.0); MEAN CORPUSCULAR HEMOGLOBIN 29.4 pg (27.0-33.0); MEAN CORPUSCULAR HGB CONC 31.9 g/dl (32.0-36.5); MONO # 0.5 10^3/uL (0.0-0.8); MONO % 7.9 % (2.0-8.0); NEUTROPHILS # 3.3 10^3/uL (1.5-8.5); NEUTROPHILS % 53.4 % (36.0-66.0); PLATELET COUNT, AUTOMATED 305 10^3/uL (150-450); RED BLOOD COUNT 4.36 10^6/uL (4.00-5.40); WHITE BLOOD COUNT 6.1 10^3/uL (4.0-10.0)
[2022-11-05 12:06] LABS: ALBUMIN 3.6 G/DL (3.2-5.2); ALKALINE PHOSPHATASE 87 U/L (46-116); ALT/SGPT 21 U/L (7.0-40); AST/SGOT < 8 U/L (<34); BILIRUBIN,TOTAL 0.4 MG/DL (0.3-1.2); BLOOD UREA NITROGEN 9 MG/DL (9-23); CALCIUM LEVEL 8.8 MG/DL (8.5-10.1); CARBON DIOXIDE LEVEL 28 MMOL/L (20-31); CHLORIDE LEVEL 108 MMOL/L (98-107); CHOLESTEROL LEVEL 273 MG/DL (<200); CHOLESTEROL RISK RATIO 6.45 (<5); FREE T4 0.98 NG/DL (0.89-1.76); GLOMERULAR FILTRATION RATE > 60.0 (>58); GLUCOSE, FASTING 103 MG/DL (60-100); HDL CHOLESTEROL 42.3 MG/DL (>40); LDL CHOLESTEROL 196.7 MG/DL (<100); NON-HDL-C 230.7 MG/DL; POTASSIUM SERUM 4.1 MMOL/L (3.5-5.1); SODIUM LEVEL 138 MMOL/L (136-145); TOTAL PROTEIN 6.6 G/DL (5.7-8.2); TRIGLYCERIDES LEVEL 170 MG/DL (<150)
[2022-11-05 12:07] LABS: THYROID STIMULATING HORMONE 1.375 uIU/ML (0.55-4.78)
== END ==
LOC: M LAB 10:37
PROVIDERS: ATTEND Student in an Organized Health Care Education/Training Program
DX: Z00.00 Encounter for general adult medical examination without abnormal findings (principal)

== ENCOUNTER → 2022-11-05 | Outpatient (CLI) | payer OTHER | LOC: M WHC 09:05 | PROVIDERS: ATTEND Student in an Organized Health Care Education/Training Program | DX: Z12.31 Encounter for screening mammogram for malignant neoplasm of breast (principal) ==

== ENCOUNTER → 2022-11-11 | Outpatient (REF) | payer OTHER | LOC: M SFHCPLAZ 17:12 | PROVIDERS: ATTEND Student in an Organized Health Care Education/Training Program | DX: Z12.4 Encounter for screening for malignant neoplasm of cervix (principal) ==

== ENCOUNTER → 2022-12-07 | Outpatient (CLI) | payer OTHER | LOC: M WHC 10:01 | PROVIDERS: ATTEND Student in an Organized Health Care Education/Training Program | DX: Z12.31 Encounter for screening mammogram for malignant neoplasm of breast (principal) | CPT/HCPCS: 77066; G0279 ==

== ENCOUNTER → 2023-03-16 | Outpatient (CLI) | payer OTHER ==
[~2023-03-16] MED LIST changes: +MECL-209 PO; -MECL1TAB31 PO
== END ==
LOC: M WHC 15:20
PROVIDERS: ATTEND Specialist
DX: N92.6 Irregular menstruation, unspecified (principal)

== ENCOUNTER 2023-06-17 08:51 | Day surgery (SDC) | payer BC ==
[~2023-06-17] VITALS: Ht 154.9 cm; Wt 73.9 kg
[~2023-06-17 08:51] MED LIST changes: +KLON0.5T PO
[2023-06-17] MEDS ORDERED: LR 1,000 ML IV SCH (09:05)
[2023-06-17 09:37] LABS: HEMATOCRIT 37.7 % (36.0-47.0); HEMOGLOBIN 12.3 g/dl (12.0-15.5); MEAN CORPUSCULAR HGB CONC 32.6 g/dl (32.0-36.5); PLATELET COUNT, AUTOMATED 320 10^3/uL (150-450); WHITE BLOOD COUNT 5.3 10^3/uL (4.0-10.0)
[2023-06-17] MEDS: ceFAZolin SOD 2 GM in IV 1 EA IV ONE (12:01)
[2023-06-17] MEDS ORDERED: KETOROLAC 60MG 2ML VIAL As Ordered ONE (12:27)
[2023-06-17] MEDS ORDERED: SUGAMMADEX SODIUM 500 MG/5 ML VIAL (BRIDION) As Ordered ONE (12:27)
[2023-06-17] MEDS ORDERED: HYDROmorphone HCL 2MG/ML 1ML VIAL As Ordered ONE (12:27)
[2023-06-17] MEDS ORDERED: METOCLOPRAMIDE INJ 10MG/2ML VIAL As Ordered ONE (12:27)
[2023-06-17] MEDS ORDERED: propofoL 200 MG/20 ML VIAL As Ordered ONE (12:27)
[2023-06-17] MEDS ORDERED: ROCURONIUM BROMIDE 50MG/5ML VIAL As Ordered ONE (12:27)
[2023-06-17] MEDS ORDERED: fentaNYL 250 MCG/5 ML INJECTION As Ordered ONE (12:27)
[2023-06-17] MEDS ORDERED: ONDANSETRON 4MG 2ML VIAL As Ordered ONE (12:27)
[2023-06-17] MEDS ORDERED: LIDOCAINE 2% 100MG/5ML SDV (FOR ANES.) As Ordered ONE (12:27)
[2023-06-17] MEDS ORDERED: MIDAZOLAM INJ 2MG/2ML VIAL As Ordered ONE (12:27)
[2023-06-17] MEDS ORDERED: ACETAMINOPHEN 1000MG 100ML IV BAG As Ordered ONE (12:27)
[2023-06-17] MEDS ORDERED: dexmedeTOMIDine (4MCG/ML)200MCG/50ML BTL (PRECEDEX) As Ordered ONE (12:27)
[2023-06-17] MEDS ORDERED: fentaNYL 100 MCG/2 ML INJECTION IV PRN (13:15)
[2023-06-17] MEDS ORDERED: MORPHINE 2 MG/ML 1ML VIAL IV PRN (13:15)
[2023-06-17] MEDS ORDERED: IBUP-1022 PO (13:23)
[2023-06-17] MEDS ORDERED: OXYC1TAB23 PO (13:23)
[2023-06-17] MEDS: ONDANSETRON 4MG 2ML VIAL IV PRN (14:05)
[2023-06-17] MEDS: oxyCODONE 5MG TAB PO PRN (14:21)
[2023-06-17 16:18] VITALS: BP 133/69; TEMP 97.5; O2SAT 97
== END 2023-06-17 16:19 | disposition home or self-care (01) ==
LOC: M SDC 08:51
PROVIDERS: ATTEND Specialist
DX: N92.0 Excessive and frequent menstruation with regular cycle (principal); N80.03 Adenomyosis of the uterus; N88.8 Other specified noninflammatory disorders of cervix uteri; N83.8 Other noninflammatory disorders of ovary, fallopian tube and broad ligament; N80.01 Superficial endometriosis of the uterus; F32.A Depression, unspecified; F41.9 Anxiety disorder, unspecified; Z79.899 Other long term (current) drug therapy; F17.210 Nicotine dependence, cigarettes, uncomplicated
CPT/HCPCS: 36415; 58552; 81025; 85027; 86850; 86900; 86901; 88307; J0131; J0665; J0690; J1100; J1170; J1885; J2250; J2405; J2765; J3010; S2900

== ENCOUNTER 2023-07-07 10:27 | Emergency (ER) | payer BC, OTHER ==
[~2023-07-07] VITALS: Ht 157.5 cm; Wt 74.0 kg
[~2023-07-07 10:27] MED LIST changes: -KLON0.5T PO; +KLON0.5T8 PO; +OXYC1TAB23 PO
[2023-07-07 11:39] LABS: BASO # 0.1 10^3/uL (0.0-0.2); BASO % 0.7 % (0.0-1.0); EOS # 0.1 10^3/uL (0.0-0.5); EOS % 1.2 % (0.0-3.0); HEMOGLOBIN 13.3 g/dl (12.0-15.5); LYMPH # 2.5 10^3/uL (1.5-5.0); LYMPH % 29.2 % (24.0-44.0); MEAN CORPUSCULAR HGB CONC 33.3 g/dl (32.0-36.5); MEAN CORPUSCULAR VOLUME 90.3 fl (80.0-96.0); MONO # 0.6 10^3/uL (0.0-0.8); MONO % 6.9 % (2.0-8.0); NEUTROPHILS # 5.3 10^3/uL (1.5-8.5); NEUTROPHILS % 61.8 % (36.0-66.0); PLATELET COUNT, AUTOMATED 320 10^3/uL (150-450); RED BLOOD COUNT 4.43 10^6/uL (4.00-5.40); WHITE BLOOD COUNT 8.6 10^3/uL (4.0-10.0)
[2023-07-07 11:48] LABS: ERYTHROCYTE SEDIMENTATION RATE 29 mm/hr (0-20)
[2023-07-07] MEDS: AMPICILLIN SOD/SULBACTAM SOD 3 GM in D5W MINI-BAG PLUS 100 ML IV ONE (12:16)
[2023-07-07] MEDS: ACETAMINOPHEN 500 MG TAB PO ONE (12:16)
[2023-07-07] MEDS ORDERED: ISOVUE-370 76% 100ML VIAL As Ordered ONE (12:17)
[2023-07-07] MEDS ORDERED: AMOX875T2 PO (14:14)
[2023-07-07] MEDS ORDERED: IBUP-1022 PO (14:14)
[2023-07-07 14:24] VITALS: BP 126/74; TEMP 98.3; O2SAT 98
== END 2023-07-07 14:30 | disposition home or self-care (01) ==
LOC: M ED 10:27
DX: K02.9 Dental caries, unspecified (principal); E04.1 Nontoxic single thyroid nodule; Z79.2 Long term (current) use of antibiotics; Z79.1 Long term (current) use of non-steroidal anti-inflammatories (NSAID); Z79.899 Other long term (current) drug therapy; Z87.442 Personal history of urinary calculi
CPT/HCPCS: 70491; 80047; 83605; 84702; 85025; 85652; 86140; 87040; 96374; 99283; J0295; Q9967

== ENCOUNTER → 2023-07-15 | Outpatient (CLI) | payer BC ==
[~2023-07-15] MED LIST changes: +AMOX875T2 PO
== END ==
LOC: M RAD 06:53
PROVIDERS: ATTEND Physician Assistant
DX: E04.1 Nontoxic single thyroid nodule (principal)

== ENCOUNTER → 2024-01-03 | Outpatient (REF) | payer BC, OTHER | LOC: M SFHCLERA 16:34 | PROVIDERS: ATTEND Physician Assistant | DX: R30.0 Dysuria (principal) ==

== ENCOUNTER → 2024-04-18 | Outpatient (CLI) | payer BC, OTHER, SELFPAY ==
[2024-04-18 10:15] LABS: BASO # 0.1 10^3/uL (0.0-0.2); BASO % 0.9 % (0.0-1.0); EOS # 0.1 10^3/uL (0.0-0.5); EOS % 1.5 % (0.0-3.0); HEMOGLOBIN 13.7 g/dl (12.0-15.5); LYMPH # 2.2 10^3/uL (1.5-5.0); LYMPH % 31.9 % (24.0-44.0); MEAN CORPUSCULAR HGB CONC 32.6 g/dl (32.0-36.5); MEAN CORPUSCULAR VOLUME 92.1 fl (80.0-96.0); MONO # 0.4 10^3/uL (0.0-0.8); MONO % 6.3 % (2.0-8.0); NEUTROPHILS # 4.1 10^3/uL (1.5-8.5); NEUTROPHILS % 59.3 % (36.0-66.0); PLATELET COUNT, AUTOMATED 255 10^3/uL (150-450); RED BLOOD COUNT 4.56 10^6/uL (4.00-5.40); WHITE BLOOD COUNT 6.8 10^3/uL (4.0-10.0)
[2024-04-18 10:44] LABS: ALBUMIN 3.7 G/DL (3.2-5.2); ALKALINE PHOSPHATASE 88 U/L (35-104); ALT/SGPT 22 U/L (7.0-40); AST/SGOT 10 U/L (<34); BILIRUBIN,TOTAL 0.6 MG/DL (0.3-1.2); BLOOD UREA NITROGEN 8 MG/DL (9-23); CALCIUM LEVEL 9.9 MG/DL (8.5-10.1); CARBON DIOXIDE LEVEL 26 MMOL/L (20-31); CHLORIDE LEVEL 108 MMOL/L (98-107); CHOLESTEROL LEVEL 258 MG/DL (<200); CHOLESTEROL RISK RATIO 5.72 (<5); FREE T4 0.93 NG/DL (0.89-1.76); GLOMERULAR FILTRATION RATE > 60.0 (>58); GLUCOSE, FASTING 101 MG/DL (60-100); HDL CHOLESTEROL 45.1 MG/DL (>40); LDL CHOLESTEROL 186.9 MG/DL (<100); NON-HDL-C 212.9 MG/DL; POTASSIUM SERUM 4.3 MMOL/L (3.5-5.1); SODIUM LEVEL 139 MMOL/L (136-145); TOTAL PROTEIN 6.9 G/DL (5.7-8.2); TRIGLYCERIDES LEVEL 130 MG/DL (<150)
== END ==
LOC: M LAB 09:14
DX: K52.9 Noninfective gastroenteritis and colitis, unspecified (principal); E04.1 Nontoxic single thyroid nodule; R53.83 Other fatigue

== ENCOUNTER → 2024-05-10 | Outpatient (CLI) | payer BC, SELFPAY | LOC: M WHC 08:48 | PROVIDERS: ATTEND Family Medicine | DX: Z12.31 Encounter for screening mammogram for malignant neoplasm of breast (principal) ==

== ENCOUNTER → 2024-07-03 | Outpatient (REF) | payer OTHER | LOC: M SFHCLERA 16:44 | DX: R35.0 Frequency of micturition (principal) ==

== ENCOUNTER → 2024-11-15 | Outpatient (REF) | LOC: M EMP 12:29 | PROVIDERS: ATTEND Family Medicine | DX: Z11.52 Encounter for screening for COVID-19 (principal) ==

== ENCOUNTER 2025-01-23 15:15 | Emergency (ER) | payer OTHER ==
[~2025-01-23] VITALS: Ht 160 cm; Wt 73.5 kg
[~2025-01-23 15:15] MED LIST changes: -IBUP-1022 PO; +IBUP600T42 PO
[2025-01-23] MEDS: IBUPROFEN 600 MG TAB PO ONE (19:02)
[2025-01-23 20:21] VITALS: BP 142/72; TEMP 97; O2SAT 100
[2025-01-23] MEDS: ACETAMINOPHEN 500 MG TAB PO ONE (20:23)
== END 2025-01-23 20:28 | disposition home or self-care (01) ==
LOC: M ED 15:15
DX: S30.0XXA Contusion of lower back and pelvis, initial encounter (principal); W07.XXXA Fall from chair, initial encounter; Y92.89 Other specified places as the place of occurrence of the external cause; Y93.89 Activity, other specified; Y99.0 Civilian activity done for income or pay; Z79.2 Long term (current) use of antibiotics; Z79.1 Long term (current) use of non-steroidal anti-inflammatories (NSAID); Z79.899 Other long term (current) drug therapy

== ENCOUNTER → 2025-04-09 | Outpatient (REF) | payer OTHER ==
[2025-04-09 18:43] LABS: BASO # 0.0 10^3/uL (0.0-0.2); BASO % 0.8 % (0.0-1.0); EOS # 0.1 10^3/uL (0.0-0.5); EOS % 1.0 % (0.0-3.0); LYMPH # 2.3 10^3/uL (1.5-5.0); LYMPH % 45.7 % (24.0-44.0); MONO # 0.2 10^3/uL (0.0-0.8); MONO % 4.8 % (2.0-8.0); NEUTROPHILS # 2.4 10^3/uL (1.5-8.5); NEUTROPHILS % 47.5 % (36.0-66.0); PLATELET COUNT, AUTOMATED 300 10^3/uL (150-450)
[2025-04-09 18:46] LABS: ALT/SGPT 18 U/L (7.0-40); AST/SGOT 16 U/L (<34); CALCIUM LEVEL 8.8 MG/DL (8.5-10.1); CARBON DIOXIDE LEVEL 29 MMOL/L (20-31); CHLORIDE LEVEL 109 MMOL/L (98-107); CHOLESTEROL LEVEL 220 MG/DL (<200); CHOLESTEROL RISK RATIO 5.23 (<5); CREATININE FOR GFR 0.64 MG/DL (0.55-1.30); GLOMERULAR FILTRATION RATE > 90.0 (>58); LDL CHOLESTEROL 151.6 MG/DL (<100); NON-HDL-C 178.0 MG/DL; POTASSIUM SERUM 4.3 MMOL/L (3.5-5.1); SODIUM LEVEL 144 MMOL/L (136-145); TRIGLYCERIDES LEVEL 132 MG/DL (<150)
[2025-04-09 18:50] LABS: TOTAL 25(OH) VITAMIN D 28.1 NG/ML (20.0-100.0)
[2025-04-09 19:16] LABS: ESTIMATED AVERAGE GLUCOSE 105.0 MG/DL (60-110)
== END ==
LOC: M SFHCLERA 10:42
PROVIDERS: ATTEND Internal Medicine
DX: Z00.00 Encounter for general adult medical examination without abnormal findings (principal); R19.7 Diarrhea, unspecified